=== PATIENT | female | born 1935 | race Caucasian/White ===

== ENCOUNTER 2023-07-15 12:44 | Outpatient (CLI) | payer OTHER, MEDICARE ==
[~2023-07-15 12:44] MED LIST: DIPH25CA83 PO; RIVA10TA PO; RIVA20TA PO; VITD2000 PO
== END 2023-07-15 19:01 | disposition home or self-care (01) ==
LOC: SMI 12:44
PROVIDERS: ATTEND Internal Medicine Hematology & Oncology
DX: C50.919 Malignant neoplasm of unspecified site of unspecified female breast (principal); G31.89 Other specified degenerative diseases of nervous system
CPT/HCPCS: 70553